=== PATIENT | female | born 1985 | race African-American/Black ===

== ENCOUNTER 2021-11-06 23:09 | Emergency (ER) | payer OTHER ==
[~2021-11-06] VITALS: Ht 165.1 cm; Wt 79.4 kg
[2021-11-06 23:24] VITALS: BP 108/78
--- NOTE | 2021-11-07 00:07 | NUR ---
Patient ambulated to bed 4 with her family.
--- NOTE | 2021-11-07 00:13 | NUR ---
ERMD AT BEDSIDE EXAMINING AT BEDSIDE.
--- NOTE | 2021-11-07 00:13 | NUR ---
36 YO F BIB SELF WITH C/C OF BLOOD IN STOOL X2DAYS.. REPORTS BRIGHT RED BLOOD. STATES SHE HAS 6/10 ABD BURNING X2DAYS. REPORTS CONSTIPATION. +NAUSEA. DECREASED APPETITE. PT STATES SHE TOOK A TYLENOL 5HRS AGO WITH RELIEF. HX:SEIZURE, ASTHMA, HEMOLYTIC ANEMIA DENIES RX AND ALLERGIES
[2021-11-07 00:34] LABS: BASOPHILS # (AUTO) 0.2 K/uL (0.00-0.22); BASOPHILS % (AUTO) 1.7 % (0.0-2.0); EOSINOPHILS # (AUTO) 0.3 K/uL (0-0.4); EOSINOPHILS % (AUTO) 2.7 % (0.0-4.0); HEMATOCRIT 32.5 % (36-48); HEMOGLOBIN 10.7 g/dL (12.0-16.0); LYMPHOCYTES # (AUTO) 1.2 K/uL (2.5-16.5); LYMPHOCYTES % (AUTO) 10.1 % (20.5-51.1); MEAN CORPUSCULAR HEMOGLOBIN 32 pg (27-31); MEAN CORPUSCULAR HGB CONC 33 g/dL (33-37); MEAN CORPUSCULAR VOLUME 96.7 fL (80-94); MONOCYTES # (AUTO) 0.6 K/uL (0.8-1.0); MONOCYTES % (AUTO) 4.6 % (1.7-9.3); NEUTROPHILS # (AUTO) 9.9 K/uL (1.8-7.7); NEUTROPHILS % (AUTO) 80.9 % (42.2-75.2); PLATELET COUNT (AUTO) 323 K/uL (140-450); RED BLOOD CELL COUNT(AUTO) 3.36 MIL/uL (4.20-5.40); RED CELL DISTRIBUTION WIDTH 13.6 % (11.6-13.7); WHITE BLOOD COUNT (AUTO) 12.2 K/uL (4.8-10.8)
[2021-11-07] MEDS: NACL 0.9% 1,000 ML IV ONE (00:35)
--- NOTE | 2021-11-07 00:36 | NUR ---
PT UNABLE TO URINATE AT THIS TIME. LABS COLLECTED AND TAKEN TO LAB.
[2021-11-07] MEDS: MORPHINE SULFATE 4 MG/ML SYR IVP ONE (00:41)
[2021-11-07] MEDS: ONDANSETRON 4 MG/2 ML VIAL IVP ONE (00:46)
[2021-11-07 00:57] LABS: ALBUMIN 3.5 g/dL (3.4-5.0); ANION GAP 9.9 (8-16); CARBON DIOXIDE 25.5 mmol/L (21-32); CREATININE 0.8 mg/dL (0.6-1.3); POTASSIUM 3.4 mmol/L (3.5-5.1); TOTAL BILIRUBIN 0.6 mg/dL (0.0-1.0)
--- NOTE | 2021-11-07 01:48 | NUR ---
PT APPEARS TO BE RESTING, EQUAL RISE AND FALL OF CHEST WALL. OPENS EYES TO SOUND. PT STATES SHE STILL DOESNT HAVE TO URINATE. PT STATED SHE IS NOT . CALLED FOR CT.
--- NOTE | 2021-11-07 01:55 | NUR ---
pt taken to ct via al[facility]
--- NOTE | 2021-11-07 02:03 | NUR ---
PT RETURNED FROM CT
--- NOTE | 2021-11-07 02:04 | NUR ---
PT IN RR FOR URINE COLLECTION
[2021-11-07 02:48] LABS: APPEARANCE,URINE SL CLOUDY (CLEAR); BILIRUBIN,URINE 1+ (NEGATIVE); BLOOD, URINE TRACE-I (NEGATIVE); COLOR,URINE YELLOW (YELLOW); LEUKOCYTE ESTERASE ,URINE NEGATIVE (NEGATIVE); NITRITE, URINE NEGATIVE (NEGATIVE); UGLUCOSE NEGATIVE (NEGATIVE)
[2021-11-07 03:08] LABS: RBC,URINE 0-5 /HPF (0-5); WBC,URINE 0-5 /HPF (0-5)
--- NOTE | 2021-11-07 04:15 | NUR ---
PT APPEARS TO BE RESTING. EYES ARE CLOSED, OPENS TO SOUND. EQUAL RISE AND FALL OF CHEST WALL. ALL NEEDS MET AT THIS TIME.
--- NOTE | 2021-11-07 05:38 | NUR ---
Female Cook Pressure accompanied female patient for Rectal Exam WITH ANA LUISA ARANGO.
[2021-11-07] MEDS ORDERED: METR-435 PO (05:47)
[2021-11-07] MEDS ORDERED: ONDA-188 PO (05:47)
[2021-11-07] MEDS ORDERED: BEN10 PO (05:47)
[2021-11-07] MEDS ORDERED: CIPR500T4 PO (05:47)
[2021-11-07 06:00] VITALS: BP 106/61
--- NOTE | 2021-11-07 06:00 | NUR ---
Patient discharged with v/s stable. Written and verbal after care instructions given and explained. Patient alert, oriented and verbalized understanding of instructions. Ambulatory with steady gait. All questions addressed prior to discharge. ID band removed. Patient advised to follow up with PMD. Rx of BENTYL, CIPRO, METRONIDAZOLE, ZOFRAN given. Patient educated on indication of medication including possible reaction and side effects. Opportunity to ask questions provided and answered.
== END 2021-11-07 06:00 | disposition home or self-care (01) ==
LOC: MED 23:09
DX: K52.9 Noninfective gastroenteritis and colitis, unspecified (principal); F17.290 Nicotine dependence, other tobacco product, uncomplicated; F12.90 Cannabis use, unspecified, uncomplicated; Z79.899 Other long term (current) drug therapy
CPT/HCPCS: 36415; 74176; 80053; 81001; 81025; 83690; 85025; 87086; 96361; 96374; 96375; 99285; J2270; J2405; J7030